=== PATIENT | female | born 1960 | race Caucasian/White ===

== ENCOUNTER → 2024-02-16 10:34 | Outpatient (REF) | payer OTHER, SELFPAY | LOC: HWWDC 10:34 | PROVIDERS: ATTENDING PHYSICIAN Obstetrics & Gynecology Gynecology; FAMILY PHYSICIAN Family Medicine | DX: Z01.419 Encounter for gynecological examination (general) (routine) without abnormal findings (principal) | CPT/HCPCS: 77063; 77067 ==

== ENCOUNTER → 2025-02-17 13:06 | Outpatient (REF) | payer OTHER, SELFPAY | LOC: HWWDC 13:06 | PROVIDERS: ATTENDING PHYSICIAN Obstetrics & Gynecology Gynecology; FAMILY PHYSICIAN Family Medicine | DX: Z12.31 Encounter for screening mammogram for malignant neoplasm of breast (principal) | CPT/HCPCS: 77063; 77067 ==